=== PATIENT | male | born 2000 | race Caucasian/White ===

== ENCOUNTER 2019-07-16 10:28 | Emergency (ER) | payer BC ==
--- NOTE | 2019-07-16 11:16 | EDM.PDOC ---
ED HPI GENERAL MEDICAL PROBLEM - General Chief Complaint: ENT Problem Stated Complaint: SORE THROAT Time Seen by Provider: 07/16/19 10:39 Source of Information: Reports: Patient History Limitations: Reports: No Limitations - History of Present Illness INITIAL COMMENTS - FREE TEXT/NARRATIVE: The patient presents with a sore throat and fever. This started yesterday. He has no cough or shortness of breath. He has a history of strep throat and he says it feels the same. He has no chest pain or shortness of breath. He says his tonsils are touching. Onset: Gradual Duration: Day(s): Location: Reports: Other (throat) Quality: Reports: Sharp Severity: Moderate Improves with: Reports: None Worsens with: Reports: None Associated Symptoms: Reports: Fever/Chills. Denies: Chest Pain, Cough, Headaches, Nausea/Vomiting, Shortness of Breath Throat Pain Score (Numeric/FACES): 7 - Related Data Allergies Allergy/AdvReac Type Severity Reaction Status Date / Time No Known Allergies Allergy Verified 07/16/19 10:38 Home Meds: Home Meds Oseltamivir [Tamiflu] 75 mg PO BID #10 cap 07/16/19 [Rx] Past Medical History - Past Health History Medical/Surgical History: Denies Medical/Surgical History Social & Family History - Tobacco Use Smoking Status *Q: Never Smoker - Recreational Drug Use Recreational Drug Use: No ED ROS ENT - Review of Systems Review Of Systems: See Below Constitutional: Reports: Fever, Chills HEENT: Reports: Throat Pain Respiratory: Reports: No Symptoms Cardiovascular: Reports: No Symptoms Endocrine: Reports: No Symptoms GI/Abdominal: Reports: No Symptoms : Reports: No Symptoms Musculoskeletal: Reports: No Symptoms ED EXAM, ENT - Physical Exam Exam: See Below Exam Limited By: No Limitations General Appearance: Alert, No Apparent Distress Ears: Normal External Exam, Normal Canal, Normal TMs Nose: Normal Inspection Mouth/Throat: Tonsillar Erythema, Tonsillar Swelling Head: Atraumatic, Normocephalic Neck: Lymphadenopathy (L), Lymphadenopathy (R) Respiratory/Chest: No Respiratory Distress, Lungs Clear, Normal Breath Sounds Cardiovascular: Regular Rate, Rhythm, No Edema, No Murmur GI/Abdominal: Soft, Non-Tender, No Organomegaly, No Mass Course - Vital Signs Last Recorded V/S: Last Vital Signs Temp 99 F 07/16/19 10:36 Pulse 97 07/16/19 10:36 Resp 16 07/16/19 10:36 BP 129/79 07/16/19 10:36 Pulse Ox 100 07/16/19 10:36 - Orders/Labs/Meds Orders: Active Orders 24 hr Category Date Time Status Ketorolac [Toradol] Med 07/16/19 11:21 Once 30 mg IM ONETIME ONE Penicillin G Benzathine [Bicillin L-A] Med 07/16/19 11:21 Once 1.2 millunits IM ONETIME ONE methylPREDNISolone Sod Succ [Solu-MEDROL] Med 07/16/19 11:21 Once 125 mg IM ONETIME ONE Isolation [COMM] Routine Oth 07/16/19 10:39 Ordered - Re-Assessments/Exams Free Text/Narrative Re-Assessment/Exam: 07/16/19 11:16 I ordered a strep and influenza and the strep is positive along with influenza. 07/16/19 11:22 I ordered bicillin LA 1.2million units IM, solu-medrol 125mg IM and toradol 30mg IM. I will also get him on some tamiflu. Departure - Departure Time of Disposition: 11:25 Disposition: Home, Self-Care 01 Condition: Good Clinical Impression: Strep tonsillitis, Influenza A - Discharge Information *PRESCRIPTION DRUG MONITORING PROGRAM REVIEWED*: Not Applicable *COPY OF PRESCRIPTION DRUG MONITORING REPORT IN PATIENT RAJ: Not Applicable Prescriptions: Oseltamivir [Tamiflu] 75 mg PO BID #10 cap Referrals: PCP,None [Primary Care Provider] - Ashley Aguirre PA-C [Physician Physician Relations Representative] - 1 Week Forms: ED Department Discharge Additional Instructions: Drink plenty of fluids. Take tamiflu 2 times per day for 5 days. Take tylenol or motrin for any fever or pain. Gargle with salt water and use chlorseptic spray as needed. Please return if you are worse. Sepsis Event Note - Evaluation Sepsis Screening Result: No Definite Risk - Focused Exam Vital Signs: Vital Signs Temp Pulse Resp BP Pulse Ox 07/16/19 10:36 99 F 97 16 129/79 100 Date Exam was Performed: 07/16/19 Time Exam was Performed: 11:22 - My Orders Last 24 Hours: My Active Orders 07/16/19 10:39 Isolation [COMM] Routine 07/16/19 11:21 Ketorolac [Toradol] 30 mg IM ONETIME ONE Penicillin G Benzathine [Bicillin L-A] 1.2 millunits IM ONETIME ONE methylPREDNISolone Sod Succ [Solu-MEDROL] 125 mg IM ONETIME ONE - Assessment/Plan Last 24 Hours: My Active Orders 07/16/19 10:39 Isolation [COMM] Routine 07/16/19 11:21 Ketorolac [Toradol] 30 mg IM ONETIME ONE Penicillin G Benzathine [Bicillin L-A] 1.2 millunits IM ONETIME ONE methylPREDNISolone Sod Succ [Solu-MEDROL] 125 mg IM ONETIME ONE
[2019-07-16] MEDS ORDERED: methylPREDNISolone Sodium Succinate 125 MG/2 ML SDV IM ONE (11:21)
[2019-07-16] MEDS ORDERED: Penicillin G Benzathine 1,200,000 Units/2 ML Syringe IM ONE (11:21)
[2019-07-16] MEDS ORDERED: Ketorolac 30 MG/ML SDV IM ONE (11:21)
== END 2019-07-16 11:35 | disposition home or self-care (01) ==
LOC: JD.ED 10:28
DX: J10.1 Influenza due to other identified influenza virus with other respiratory manifestations (principal)
CPT/HCPCS: 87430; 87804; 96372; 99283; J0561; J1885; J2930